=== PATIENT | female | born 1980 | race American Indian/Alaskan Native ===

== ENCOUNTER 2016-11-06 18:52 | Emergency (ER) | payer SELFPAY ==
--- NOTE | 2016-11-06 21:53 | XRay Report ---
FINAL REPORT PROCEDURE: XR ANKLE 3 RT TECHNIQUE: RIGHT ankle radiographs, AP, lateral, and oblique views. CPT 62029 HISTORY: ankle pain, back of leg pain COMPARISON: No prior studies are available for comparison. FINDINGS: Fracture (s) and/or Dislocation(s): None. Alignment: Normal. Joint space(s): No widening of the ankle mortise. Spurring of the medial malleolus. Soft tissues: Normal. Bone mineralization: Normal. Foreign bodies: None. Calcaneal spurring: Plantar and dorsal spurs. IMPRESSION: No fracture. Heel spurs..
--- NOTE | 2016-11-06 22:53 | Emergency Department Report ---
ED Lower Extremity HPI - General Chief Complaint: Extremity Injury, Lower Stated Complaint: RT ANKLE INJURY Time Seen by Provider: 11/06/16 21:14 Source: patient Mode of arrival: Ambulatory Limitations: No Limitations - History of Present Illness Initial Comments: This is a 36-year-old female that presents with right ankle pain status post inversion from a trip. Patient describes pain 8 out of 10 as aching. Timing recurrence was yesterday around 10 PM. Patient denies any numbness or tingling sensation extremities. Denies nausea or vomiting. Denies shortness of breath or chest pain. Patient has a steady gait. Patient denies any swelling to the area. Patient denies any trauma to the extremity. Patient denies any drug allergies. The patient does not seem toxic or ill appearance. No signs and distress noted. A male family members currently present at the bedside. MD Complaint: ankle injury (right) -: Sudden, days(s) (1) Injury: Ankle: Right Type of Injury: inversion (right ankle) Place: work Severity: moderate Severity scale (0 -10): 8 Improves With: NSAID Worsens With: weight bearing Context: other (tripped) Associated Symptoms: able to partially bear weight, ambulatory. denies: snap/ pop sensation, swelling, numbness, tingling, unable to bear weight - Related Data Previous Rx's Medication Instructions Recorded Last Taken Type Ibuprofen [Motrin 600 MG tab] 600 mg PO Q8H PRN 5 Days 11/06/16 Unknown Rx Allergies Allergy/AdvReac Type Severity Reaction Status Date / Time No Known Allergies Allergy Verified 11/06/16 19:37 ED Review of Systems ROS: Stated complaint: RT ANKLE INJURY Other details as noted in HPI Constitutional: denies: chills, fever Eyes: denies: eye pain, eye discharge, vision change ENT: denies: ear pain, throat pain Respiratory: denies: cough, shortness of breath, wheezing Cardiovascular: denies: chest pain, palpitations Endocrine: no symptoms reported Gastrointestinal: denies: abdominal pain, nausea, diarrhea Genitourinary: denies: urgency, dysuria, discharge Musculoskeletal: denies: back pain, joint swelling, arthralgia Skin: denies: rash, lesions Neurological: denies: headache, weakness, paresthesias Psychiatric: denies: anxiety, depression Hematological/Lymphatic: denies: easy bleeding, easy bruising ED Past Medical Hx - Past Medical History Previous Medical History?: No - Surgical History Past Surgical History?: Yes Additional Surgical History: COLON - Social History Smoking Status: Current Every Day Smoker Substance Use Type: None - Medications Home Medications: Home Medications Medication Instructions Recorded Confirmed Last Taken Type Ibuprofen [Motrin 600 MG tab] 600 mg PO Q8H PRN 5 Days 11/06/16 Unknown Rx ED Physical Exam - General Limitations: No Limitations General appearance: alert, in no apparent distress - Head Head exam: Present: atraumatic, normocephalic - Eye Eye exam: Present: normal appearance - ENT ENT exam: Present: mucous membranes moist - Neck Neck exam: Present: normal inspection - Respiratory Respiratory exam: Present: normal lung sounds bilaterally. Absent: respiratory distress - Cardiovascular Cardiovascular Exam: Present: regular rate, normal rhythm. Absent: systolic murmur, diastolic murmur, rubs, gallop - GI/Abdominal GI/Abdominal exam: Present: soft, normal bowel sounds - Extremities Exam Extremities exam: Present: normal inspection - Expanded Lower Extremity Exam Right Hip exam: Present: normal inspection, full ROM. Absent: tenderness, swelling Upper Leg exam: Present: normal inspection, full ROM. Absent: tenderness, swelling Knee exam: Present: normal inspection, full ROM. Absent: tenderness, swelling Lower Leg exam: Present: normal inspection, full ROM. Absent: tenderness, swelling Ankle exam: Present: normal inspection, full ROM, tenderness. Absent: swelling , abrasion, laceration, ecchymosis, deformity, crepidus, dislocation, erythema, anterior draw sign Foot/Toe exam: Present: normal inspection, full ROM. Absent: tenderness, swelling, abrasion, laceration, ecchymosis, deformity, dislocation, erythema, amputation, puncture wound, foreign body, calcaneal tenderness, tenderness at base of 5th metatarsal, nail avulsion Neuro vascular tendon exam: Present: no vascular compromise Gait: Positive: observed and normal - Back Exam Back exam: Present: normal inspection, full ROM. Absent: tenderness, CVA tenderness (R), CVA tenderness (L) - Neurological Exam Neurological exam: Present: alert, oriented X3, CN II-XII intact, normal gait - Psychiatric Psychiatric exam: Present: normal affect, normal mood - Skin Skin exam: Present: warm, dry, intact, normal color. Absent: rash ED Course Vital Signs 11/06/16 19:37 Temperature 98.7 F Pulse Rate 79 Respiratory 20 Rate Blood Pressure 132/69 O2 Sat by Pulse 100 Oximetry ED Lower Extremity MDM - Medical Decision Making Ed course: 36-year-old female that presents with right ankle strain 1- patient received ibuprofen 600 mg by mouth. 2-x-ray results of the right ankle: No fracture. Heel spurs. 3- patient aware of x-ray results. No further questions noted by the patient. 4- I instructed patient to rest, elevate, ice the affected area. 5- I also instructed the patient to follow up with her primary care doctor/ orthopedic within 3-5 days. 6- patient is prescribed ibuprofen 600 mg for pain as needed. 7- at the time of discharge the patient does not seem toxic or ill in appearance. No signs of any distress noted. Patient agrees with discharge plan and treatment. No further questions noted by the patient. 8- Reji wrap applied to the right ankle. No sinus symptoms of numbness or tingling sensation. Patient stated that is not too tight for her. Critical care attestation.: If time is entered above; I have spent that time in minutes in the direct care of this critically ill patient, excluding procedure time. ED Disposition Clinical Impression: Right ankle strain Qualifiers: Encounter type: initial encounter Qualified Code(s): S96.911A - Strain of unspecified muscle and tendon at ankle and foot level, right foot, initial encounter Disposition: DISCHARGED TO HOME OR SELFCARE Is pt being admited?: No Does the pt Need Aspirin: No Condition: Stable Instructions: RICE Therapy (ED), Ibuprofen (By mouth) Additional Instructions: Follow-up with her primary care doctor/orthopedic in 3-5 days Take ibuprofen as prescribed as needed If symptoms worse such as numbness tingling sensation, swelling, redness, report back to emergency room. Prescriptions: Ibuprofen [Motrin 600 MG tab] 600 mg PO Q8H PRN 5 Days PRN Reason: Pain Referrals: KEVIN ALMENDAREZ MD [Primary Care Provider] - 3-5 Days SAUL BAEZ MD [Staff Physician] - 3-[address] [facility] [Outside] - 3-5 Days [facility] [Outside] - 3-5 Days Forms: Work/School Release Form(ED)
[2016-11-06] MEDS ORDERED: MOTRIN PO ONE (22:55)
[2016-11-06 23:10] VITALS: BP 117/67
== END 2016-11-06 23:11 | disposition home or self-care (01) ==
LOC: ED 18:52
DX: S96.911A Strain of unspecified muscle and tendon at ankle and foot level, right foot, initial encounter (principal); F17.200 Nicotine dependence, unspecified, uncomplicated; X58.XXXA Exposure to other specified factors, initial encounter; Y93.89 Activity, other specified; Y99.8 Other external cause status; Y92.89 Other specified places as the place of occurrence of the external cause
CPT/HCPCS: 99284

== ENCOUNTER 2017-06-01 14:39 | Emergency (ER) | payer MEDICAID ==
--- NOTE | 2017-06-01 16:04 | Emergency Department Report ---
Chief Complaint: Abdominal Pain Stated Complaint: PREG, ABDOMINAL PAIN Time Seen by Provider: 06/01/17 16:03 - HPI History of Present Illness: Patient here reports that she is having right pelvic pain and cramping also right groin pain since last night. She states that she is 16 weeks . She says she hasn't had an ultrasound yet but she is scheduled to have OB appointment somewhere around [address] [place] [address] in June. 4para 3. Denies any urinary burning frequency or urgency. Denies any fever or chills. Pain is 8 out of 10 and feels crampy. Denies any medical problem. She denies any vaginal bleeding or discharge. She is also complaining of right shoulder pain. Denies any injuries - ROS Review of Systems: All systems are negative unless stated in HPI above - Exam Vital Signs: Vital Signs 06/01/17 15:23 Temperature 98.6 F Pulse Rate 89 Respiratory 18 Rate Blood Pressure 134/60 O2 Sat by Pulse 100 Oximetry Physical Exam: Gen.: This is a 36-year-old female well-nourished well-developed in no acute distress. Abdomen: Soft, mild tenderness to palpate the pelvic area, no guarding no rebound tenderness. Normal bowel sounds Extremity : Full range of motion to all extremities. No clubbing, cyanosis or edema. No deformity noted. MSE screening note: Focused history and physical exam performed. Due to findings the following was ordered: ED Medical Decision Making - Lab Data Result diagrams: 06/01/17 15:45 - Medical Decision Making MDM: Patient screened by provider in triage area. Appropriate protocol initiated and patient to be seen in main ED by ED Disposition for MSE Condition: Stable Instructions: Abdominal Pain (ED)
[2017-06-01 16:34] LABS: Basophils % (Auto) 0.2 % (0.0-1.8); Eosinophils % (Auto) 1.9 % (0.0-4.3); Hematocrit 38.4 % (30.3-42.9); Hemoglobin 12.7 gm/dl (10.1-14.3); Mean Corpuscular HGB Conc 33 % (30-34); Mean Corpuscular Hemoglobin 31 pg (28-32); Mean Corpuscular Volume 94 fl (79-97); Platelet Count 287 K/mm3 (140-440); Red Blood Count 4.09 M/mm3 (3.65-5.03); Red Cell Distribution Width 12.4 % (13.2-15.2); White Blood Count 15.1 K/mm3 (4.5-11.0)
[2017-06-01 16:36] LABS: Alanine Aminotransferase 8 units/L (7-56); Albumin/Globulin Ratio 1.3 %; Alkaline Phosphatase 49 units/L (35-129); Anion Gap 17 mmol/L; BUN/Creatinine Ratio 10; Blood Urea Nitrogen 4 mg/dL (7-17); Calcium 8.9 mg/dL (8.4-10.2); Carbon Dioxide 25 mmol/L (22-30); Chloride 101.3 mmol/L (98-107); Glucose 85 mg/dL (65-100); Lipase 17 units/L (13-60); Potassium 4.6 mmol/L (3.6-5.0); Sodium 139 mmol/L (137-145); Total Protein 7.1 g/dL (6.3-8.2)
[2017-06-01 16:39] LABS: Bilirubin,Urine NEG (Negative); Blood,Urine NEG (Negative); Ketones,Urine NEG (Negative); Leukocyte Esterase,Urine NEG (Negative); Mucus,Urine 1+ /HPF; Nitrite,Urine NEG (Negative); Protein,Urine <15 mg/dL mg/dL (Negative)
--- NOTE | 2017-06-01 23:22 | Ultrasound Report ---
FINAL REPORT PROCEDURE: US OB < = 14 WEEKS FETUS TECHNIQUE: Real-time transabdominal sonography of the uterus, placenta, amniotic fluid, adnexa, and fetus was performed with image documentation. Measurements were obtained to determine age/size. M-mode Doppler was used to document heartbeat. CPT 88159 HISTORY: PELVIC PAIN WITH PREGNANY COMPARISON: No prior studies are available for comparison. FINDINGS: CRL: 54 mm, which corresponds to a gestational age of: 12 weeks, 0 days. Yolk Sac: Not visualized Embryonic Cardiac Activity: Normal. 170 beats per minute. Gestational Sac: Normal. Amniotic fluid: Normal. Cervix: Normal. Right Ovary: Normal. Left Ovary: Normal. Estimated delivery date: December 14, 2017 Uterus and adnexa: Normal. IMPRESSION: Single live intrauterine gestation at approximately 12 weeks 0 days. EDC by US December 14, 2017
--- NOTE | 2017-06-02 00:08 | Ultrasound Report ---
FINAL REPORT EXAM: US OB TRANSVAGINAL HISTORY: PELVIC PAIN WITH PREGNANY TECHNIQUE: Transvaginal imaging was obtained the pelvis along with Doppler interrogation. FINDINGS: The uterus measures 14.9 cm x 9.3 cm x 10 cm. There is an intrauterine gestational sac containing an embryo corresponding to a 12 week 1 day IUP. The heart rate is 172 BPM. Complete survey of organs was not obtained. There is no evidence of subchorionic hemorrhage. The maternal right ovary is normal in size contour and echotexture measuring 3.4 cm x 2.7 cm x 2.3 cm. The maternal left ovary measures 3.8 cm x 1.6 cm x 2.5 cm. There is a complex cyst in the left ovary measures 2.5 cm in diameter. Free fluid is not seen. IMPRESSION: Single viable IUP, 12 week 1 day. heart rate 172 BPM. 2.5 cm complex cyst in the left ovary compatible with a corpus luteum cyst..
--- NOTE | 2017-06-02 00:15 | Emergency Department Report ---
HPI - General Chief Complaint: Abdominal Pain Time Seen by Provider: 06/01/17 16:03 - HPI HPI: 36-year-old AA female presents to the emergency department with complaint of lower abdominal and/or pelvic cramping since last night while . The patient believes she is about 16 weeks . With this she is . She does not have any [facility] and is not currently on any vitamins. She had the confirmed at the health Department but has not yet had an ultrasound. She denies any vaginal discharge, vaginal bleeding, dysuria, fever, nausea or vomiting. No recent travel or sick contacts at home. She denies any other past medical history. She has not taken anything for her symptoms prior to presentation. ED Past Medical Hx - Past Medical History Previous Medical History?: No - Surgical History Additional Surgical History: COLON - Social History Smoking Status: Current Every Day Smoker Substance Use Type: None - Medications Home Medications: Home Medications Medication Instructions Recorded Confirmed Last Taken Type Ibuprofen [Motrin 600 MG tab] 600 mg PO Q8H PRN 5 Days tablet 11/06/16 Unknown Rx Vit-Fe Fumar-FA [ 1 tab PO QDAY #30 tablet 06/02/17 Unknown Rx Vitamin] ED Review of Systems ROS: Stated complaint: PREG, ABDOMINAL PAIN Other details as noted in HPI Comment: All other systems reviewed and negative Constitutional: denies: chills, fever Eyes: denies: eye pain, eye discharge, vision change ENT: denies: ear pain, throat pain Respiratory: denies: cough, shortness of breath, wheezing Cardiovascular: denies: chest pain, palpitations Gastrointestinal: denies: nausea, vomiting Genitourinary: denies: urgency, dysuria, discharge Musculoskeletal: denies: back pain, joint swelling, arthralgia Skin: denies: rash, lesions Neurological: denies: headache, weakness, paresthesias Physical Exam - Physical Exam Vital Signs: Vital Signs 06/01/17 15:23 Temperature 98.6 F Pulse Rate 89 Respiratory 18 Rate Blood Pressure 134/60 O2 Sat by Pulse 100 Oximetry Physical Exam: GENERAL: The patient is well-developed well-nourished. HENT: Normocephalic. Atraumatic. Patient has moist mucous membranes. EYES: Extraocular motions are intact. Pupils equal reactive to light bilaterally. NECK: Supple. Trachea is midline. CHEST/LUNGS: Clear to auscultation. There is no respiratory distress noted. HEART/CARDIOVASCULAR: Regular. There is no tachycardia. There is no gallop rub or murmur. ABDOMEN: Abdomen is soft. Unable to reproduce any lower abdominal or pelvic tenderness to palpation. No guarding or rebound tenderness. Obese habitus. Patient has normal bowel sounds. SKIN: Skin is warm and dry. NEURO: The patient is awake, alert, and oriented. The patient is cooperative. The patient has no focal neurologic deficits. The patient has normal speech. MUSCULOSKELETAL: There is no tenderness or deformity. There is no limitation range of motion. There is no evidence of acute injury. ED Course Vital Signs 06/01/17 15:23 Temperature 98.6 F Pulse Rate 89 Respiratory 18 Rate Blood Pressure 134/60 O2 Sat by Pulse 100 Oximetry ED Medical Decision Making - Lab Data Result diagrams: 06/01/17 15:45 06/01/17 15:37 - Radiology Data Radiology results: report reviewed PROCEDURE: US OB lt; = 14 WEEKS FETUS TECHNIQUE: Real-time transabdominal sonography of the uterus, placenta, amniotic fluid, adnexa, and fetus was performed with image documentation. Measurements were obtained to determine age/size. M-mode Doppler was used to document heartbeat. CPT 66141 HISTORY: PELVIC PAIN WITH PREGNANY COMPARISON: No prior studies are available for comparison. FINDINGS: CRL: 54 mm, which corresponds to a gestational age of: 12 weeks, 0 days. Yolk Sac: Not visualized Embryonic Cardiac Activity: Normal. 170 beats per minute. Gestational Sac: Normal. Amniotic fluid: Normal. Cervix: Normal. Right Ovary: Normal. Left Ovary: Normal. Estimated delivery date: December 14, 2017 Uterus and adnexa: Normal. IMPRESSION: Single live intrauterine gestation at approximately 12 weeks 0 days. EDC by US December 14, 2017 Transcribed By: JAMES Dictated By: SHANTI SANTANA MD Electronically Authenticated By: SHANTI SANTANA MD Signed Date/Time: 06/01/171919 - Medical Decision Making The patient presents with some lower abdominal and pelvic cramping while . Ultrasound shows a live intrauterine at 12 weeks. No vaginal bleeding, discharge dysuria. Vital signs stable throughout ED course. Labs are mostly unremarkable except for a leukocytosis of 15,000 but no source of infection seen. She appears safe for discharge home at this time. She'll be given vitamins and referrals for [facility]. - Differential Diagnosis , threatened miscarriage, spontaneous miscarriage, fibroids Critical Care Time: No Critical care attestation.: If time is entered above; I have spent that time in minutes in the direct care of this critically ill patient, excluding procedure time. ED Disposition Clinical Impression: Pelvic cramping Qualifiers: Weeks of gestation: 12 weeks Qualified Code(s): Z3A.12 - 12 weeks gestation of Disposition: - TO HOME OR SELFCARE Is pt being admited?: No Condition: Stable Instructions: (ED), Abdominal Pain (ED) Additional Instructions: Please follow up with an [facility] in the next few days if possible. Return to the emergency Department with any worsening of her symptoms, vaginal bleeding, sharp abdominal or pelvic pains, or any acute distress. I have prescribed you vitamins. He can take Tylenol every 4 hours, using weight-based dosing , as needed for discomfort. Otherwise do not take any medications that are not prescribed by a physician. Prescriptions: Vit-Fe Fumar-FA [ Vitamin] 1 tab PO QDAY #30 tablet Referrals: PRIMARY CARE, [Primary Care Provider] - 3-5 Days [facility] [Provider Group] - 3-5 Days [facility] [Provider Group] - 3-5 Days [facility] [Provider Group] - 3-5 Days Time of Disposition: 00:16
[2017-06-02 00:28] VITALS: BP 142/56
== END 2017-06-02 00:28 | disposition home or self-care (01) ==
LOC: ED 14:39
DX: O26.891 Other specified pregnancy related conditions, first trimester (principal); Z3A.12 12 weeks gestation of pregnancy; O99.331 Smoking (tobacco) complicating pregnancy, first trimester
CPT/HCPCS: 36415; 76801; 76817; 80053; 81001; 83690; 84702; 85025

== ENCOUNTER 2017-12-09 13:05 | Inpatient (IN) | payer MEDICAID ==
[2017-12-09] MEDS ORDERED: XYLOCAINE 2% INFILTRATI ONE (15:56)
[2017-12-09] MEDS ORDERED: SUBLIMAZE IV PRN (15:56)
[2017-12-09] MEDS ORDERED: CERVIDIL VG ONE (15:56)
[2017-12-09] MEDS ORDERED: STADOL IV PRN (15:56)
[2017-12-09] MEDS ORDERED: BRETHINE SUB-Q PRN (15:56)
[2017-12-09] MEDS ORDERED: MINERAL OIL PO PRN (15:56)
[2017-12-09] MEDS ORDERED: ZOFRAN IV PRN (15:56)
[2017-12-09] MEDS ORDERED: BRETHINE IVP PRN (15:56)
[2017-12-09] MEDS ORDERED: ePHEDrine SULFATE IV PRN (15:56)
[2017-12-09] MEDS ORDERED: PHENERGAN PO PRN (15:56)
[2017-12-09] MEDS ORDERED: PITOCin/NS 20 UNIT/1000ML DRIP 20 UNITS/1,000 ML BAG IV SCH (16:00)
[2017-12-09] MEDS ORDERED: PITOCin/NS 30 UNIT/500ML 30 UNITS/500 ML BAG IV SCH ×2 (16:00)
--- NOTE | 2017-12-09 16:02 | History and Physical Report ---
History of Present Illness Date of examination: 12/09/17 Date of admission: 12/09/17 13:05 Chief complaint: Induction of labor History of present illness: Pt is a 37yo BF EDC 12/14/17; EGA 39 2/7 weeks presents for induction per [facility] due to Polyhydramnios, Morbid obesity and AMA. She received care at [facility] since 17 weeks and co-managed by [facility]. records are available and GBS is Negative. Past History Past Medical History: other (Morbid Obesity) Past Surgical History: no surgical history Family/Genetic History: none Social history: no significant social history, - Obstetrical History Expected Date of Delivery: 12/14/17 Actual Gestation: 39 Week(s) 3 Day(s) : 4 Medications and Allergies Allergies Allergy/AdvReac Type Severity Reaction Status Date / Time No Known Allergies Allergy Verified 11/06/16 19:37 Home Medications Medication Instructions Recorded Confirmed Last Taken Type Vit-Fe Fumar-FA [ 1 tab PO QDAY #30 tablet 06/02/17 12/09/17 09:00 Rx Vitamin] Review of Systems All systems: negative - Vital Signs Vital signs: Vital Signs Temp Pulse Resp BP Pulse Ox 96.9 F L 102 H 20 130/75 97 12/09/17 14:14 12/09/17 14:14 12/09/17 14:14 12/09/17 14:14 12/09/17 14:14 Temp Pulse Resp BP Pulse Ox 96.9 F L 98 H 20 130/75 98 12/09/17 14:14 12/09/17 15:59 12/09/17 14:14 12/09/17 14:18 12/09/17 15:59 - Physical Exam Breasts: Positive: deferred Cardiovascular: Regular rate Lungs: Positive: Clear to auscultation Abdomen: Positive: normal appearance Genitourinary (Female): Positive: normal external genitalia Vagina: Positive: normal moisture Uterus: Positive: enlarged Extremities: Positive: normal - Obstetrical FHR: category 1 Uterine Contraction Monitor Mode: External Cervical Dilatation: 1 Cervical Effacement Percentage: 50 station: -3 Uterine Contraction Pattern: Absent Results Result Diagrams: 12/09/17 16:42 All other labs normal. Assessment and Plan - Patient Problems (1) 39 weeks gestation of Onset Date: 12/09/17 Current Visit: Yes Status: Acute Plan to address problem: A: IUP @ 39 278 weeks Polyhydramnios AMA Morbid Obesity P: Admit to L&D for cervidil/pitocin induction of labor Expectant vaginal delivery (2) Polyhydramnios affecting in third trimester Onset Date: 12/09/17 Current Visit: Yes Status: Acute (3) AMA (advanced maternal age) multigravida 35+ Onset Date: 12/09/17 Current Visit: Yes Status: Chronic Qualifiers: Trimester: third trimester Qualified Code(s): O09.523 - Supervision of elderly multigravida, third trimester (4) Morbid obesity with BMI of 45.0-49.9, adult Onset Date: 12/09/17 Current Visit: Yes Status: Chronic
[2017-12-09 17:16] LABS: Hematocrit 41.6 % (30.3-42.9); Hemoglobin 13.5 gm/dl (10.1-14.3); Mean Corpuscular HGB Conc 32 % (30-34); Mean Corpuscular Hemoglobin 30 pg (28-32); Mean Corpuscular Volume 93 fl (79-97); Platelet Count 296 K/mm3 (140-440); Red Blood Count 4.49 M/mm3 (3.65-5.03); Red Cell Distribution Width 14.3 % (13.2-15.2)
[2017-12-10] MEDS: LACTATED RINGERS 1,000 ML IV SCH ×3 (02:06→09:26)
--- NOTE | 2017-12-10 14:47 | Progress Note ---
Assessment and Plan - Patient Problems (1) 39 weeks gestation of Onset Date: 12/09/17 Current Visit: Yes Status: Acute Plan to address problem: A: IUP @ 39 3/78 weeks Polyhydramnios P: Continue with pitocin induction of labor Expectant vaginal delivery (2) Polyhydramnios affecting in third trimester Onset Date: 12/09/17 Current Visit: Yes Status: Acute (3) AMA (advanced maternal age) multigravida 35+ Onset Date: 12/09/17 Current Visit: Yes Status: Acute Qualifiers: Trimester: third trimester Qualified Code(s): O09.523 - Supervision of elderly multigravida, third trimester Subjective - Subjective Date of service: 12/10/17 Principal diagnosis: IUP @ 39 4/7 weeks; Polyhydramnios Interval history: Pt is a 37yo BF EDC 12/14/17; EGA 39 3/7 weeks presented for induction of labor per [facility] due to Polyhydramnios. She received cervidel last night and currently on Pitocin 12mu/min and dave q 2-4 mins after SROM clear fluid @ 1247. Patient reports: loss of fluid, movement normal, contractions, no new complaints, no vaginal bleeding Objective - Vital Signs Vital Signs: Vital Signs - 12hr 12/10/17 12/10/17 12/10/17 02:46 02:51 02:53 Temperature Pulse Rate 83 86 85 Respiratory Rate Blood Pressure 138/68 O2 Sat by Pulse 99 97 Oximetry 12/10/17 12/10/17 12/10/17 02:56 03:01 03:06 Temperature Pulse Rate 83 78 82 Respiratory Rate Blood Pressure O2 Sat by Pulse 99 99 97 Oximetry 12/10/17 12/10/17 12/10/17 03:11 03:16 03:21 Temperature Pulse Rate 88 93 H 83 Respiratory Rate Blood Pressure O2 Sat by Pulse 99 99 99 Oximetry 12/10/17 12/10/17 12/10/17 03:26 03:31 03:36 Temperature Pulse Rate 83 79 79 Respiratory Rate Blood Pressure O2 Sat by Pulse 97 97 98 Oximetry 12/10/17 12/10/17 12/10/17 03:41 03:46 03:51 Temperature Pulse Rate 78 81 83 Respiratory Rate Blood Pressure O2 Sat by Pulse 97 98 97 Oximetry 12/10/17 12/10/1718 03:53 03:56 04:00 Temperature 98.0 F Pulse Rate 83 80 Respiratory 20 Rate Blood Pressure 121/67 O2 Sat by Pulse 98 Oximetry 12/10/17 12/10/17 12/10/17 04:01 04:06 04:11 Temperature Pulse Rate 79 77 80 Respiratory Rate Blood Pressure O2 Sat by Pulse 98 98 97 Oximetry 12/10/17 12/10/17 12/10/17 04:16 04:21 04:26 Temperature Pulse Rate 75 81 92 H Respiratory Rate Blood Pressure O2 Sat by Pulse 100 99 100 Oximetry 12/10/17 12/10/17 12/10/17 04:27 04:31 04:35 Temperature Pulse Rate 79 78 77 Respiratory Rate Blood Pressure O2 Sat by Pulse 93 89 94 Oximetry 12/10/17 12/10/17 12/10/17 04:36 04:41 04:44 Temperature Pulse Rate 82 84 86 Respiratory Rate Blood Pressure O2 Sat by Pulse 94 97 93 Oximetry 12/10/17 12/10/17 12/10/17 04:46 04:51 04:55 Temperature Pulse Rate 80 81 80 Respiratory Rate Blood Pressure 142/67 O2 Sat by Pulse 92 91 Oximetry 12/10/17 12/10/17 12/10/17 04:56 05:01 05:06 Temperature Pulse Rate 79 79 75 Respiratory Rate Blood Pressure O2 Sat by Pulse 93 92 92 Oximetry 12/10/17 12/10/17 12/10/17 05:11 05:16 05:21 Temperature Pulse Rate 74 77 79 Respiratory Rate Blood Pressure O2 Sat by Pulse 92 91 99 Oximetry 12/10/17 12/10/17 12/10/17 05:26 05:31 05:36 Temperature Pulse Rate 74 77 77 Respiratory Rate Blood Pressure O2 Sat by Pulse 99 99 100 Oximetry 12/10/17 12/10/17 12/10/17 06:52 06:53 06:57 Temperature Pulse Rate 76 82 77 Respiratory Rate Blood Pressure 139/81 O2 Sat by Pulse 98 94 98 Oximetry 12/10/17 12/10/17 12/10/17 07:00 07:02 07:07 Temperature 98.0 F Pulse Rate 73 78 Respiratory 18 Rate Blood Pressure O2 Sat by Pulse 97 95 Oximetry 12/10/17 12/10/17 12/10/17 07:12 07:17 07:22 Temperature Pulse Rate 78 90 84 Respiratory Rate Blood Pressure O2 Sat by Pulse 97 97 97 Oximetry 12/10/17 12/10/17 12/10/17 07:27 07:32 07:37 Temperature Pulse Rate 86 85 84 Respiratory Rate Blood Pressure O2 Sat by Pulse 97 97 96 Oximetry 12/10/17 12/10/17 12/10/17 07:42 07:47 07:52 Temperature 98.6 F Pulse Rate 88 78 89 Respiratory 20 Rate Blood Pressure O2 Sat by Pulse 96 97 97 Oximetry 12/10/17 12/10/17 12/10/17 07:53 07:57 08:02 Temperature Pulse Rate 82 84 83 Respiratory Rate Blood Pressure 108/59 O2 Sat by Pulse 97 97 Oximetry 12/10/17 12/10/17 12/10/17 08:07 08:12 08:17 Temperature Pulse Rate 84 97 H 94 H Respiratory Rate Blood Pressure O2 Sat by Pulse 98 97 99 Oximetry 12/10/17 12/10/17 12/10/17 08:22 08:27 08:32 Temperature Pulse Rate 91 H 98 H 99 H Respiratory Rate Blood Pressure O2 Sat by Pulse 98 98 96 Oximetry 12/10/17 12/10/17 12/10/17 08:37 08:42 08:46 Temperature Pulse Rate 99 H 74 84 Respiratory Rate Blood Pressure O2 Sat by Pulse 95 96 94 Oximetry 12/10/17 12/10/17 12/10/17 08:47 08:51 08:52 Temperature Pulse Rate 78 78 84 Respiratory Rate Blood Pressure O2 Sat by Pulse 95 94 95 Oximetry 12/10/17 12/10/17 12/10/17 08:53 08:57 09:02 Temperature Pulse Rate 90 78 78 Respiratory Rate Blood Pressure 108/54 O2 Sat by Pulse 96 98 Oximetry 12/10/17 12/10/17 12/10/17 09:05 09:07 09:12 Temperature Pulse Rate 99 H 88 103 H Respiratory Rate Blood Pressure 148/77 O2 Sat by Pulse 95 96 Oximetry 12/10/17 12/10/17 12/10/17 09:17 09:22 09:27 Temperature Pulse Rate 82 81 93 H Respiratory Rate Blood Pressure O2 Sat by Pulse 97 95 98 Oximetry 12/10/17 12/10/17 12/10/17 09:32 09:35 10:04 Temperature Pulse Rate 83 78 78 Respiratory Rate Blood Pressure 141/80 103/58 O2 Sat by Pulse 96 Oximetry 12/10/17 12/10/17 12/10/17 10:34 11:05 11:30 Temperature 98.9 F Pulse Rate 80 84 Respiratory 20 Rate Blood Pressure 111/52 113/56 O2 Sat by Pulse Oximetry 12/10/17 12/10/17 12/10/17 11:34 12:04 12:35 Temperature Pulse Rate 88 80 80 Respiratory Rate Blood Pressure 105/53 127/61 124/58 O2 Sat by Pulse Oximetry 12/10/17 12/10/17 12/10/17 12:50 12:56 13:04 Temperature Pulse Rate 86 78 85 Respiratory Rate Blood Pressure 138/61 O2 Sat by Pulse 84 0 L Oximetry 12/10/17 12/10/17 12/10/17 13:36 14:04 14:35 Temperature Pulse Rate 79 80 84 Respiratory Rate Blood Pressure 126/58 149/72 149/72 O2 Sat by Pulse Oximetry - Exam Abdomen: Present: normal appearance, soft Uterus: Present: normal FHR: category 1 Uterine Contraction Monitor Mode: External Cervical Dilatation: 4 Cervical Effacement Percentage: 50 station: -3 Uterine Contraction Pattern: Regular Uterine Tone Measurement Phase: Contraction Uterine Contraction Intensity: Moderate Extremities: normal - Labs Labs: Abnormal Labs 12/09/17 16:42 WBC 13.8 H Laboratory Results - last 24 hr 12/09/17 12/09/17 12/09/17 16:42 16:42 16:42 WBC 13.8 H RBC 4.49 Hgb 13.5 Hct 41.6 MCV 93 MCH 30 MCHC 32 RDW 14.3 Plt Count 296 RPR Nonreactive Blood Type A POSITIVE Antibody Screen Negative
[2017-12-10] MEDS ORDERED: XYLOCAINE 2% INFILTRATI ONE (17:06)
--- NOTE | 2017-12-10 17:53 | Procedure Note ---
OB Delivery Note - Delivery Date of Delivery: 12/10/17 Surgeon: ARIAN LY Estimated blood loss: 300cc - Vaginal Delivery presentation: vertex Delivery position: OA Intrapartum events: PROM->1hr before delivery, hydramnios Delivery induction: cervidil Delivery augmentation: rupture of membranes, pitocin Delivery monitor: external FHT, internal uterine Route of delivery: Delivery placenta: spontaneous Delivery cord: 3 umbilical vessels Episiotomy: none Delivery laceration: 2nd degree (perineal) Delivery repair: vicryl Anesthesia: local Delivery comments: delivered OA and placed on Mom's chest for [id number] bonding and delayed cord clamping, cut by Dad - Infant A at 1 minute: 8 at 5 minutes: 9 Infant Gender: Female (3819gms)
[2017-12-10] MEDS ORDERED: TYLENOL PO PRN (17:56)
[2017-12-10] MEDS ORDERED: NORCO 5/325 PO PRN (17:56)
[2017-12-10] MEDS ORDERED: PHENERGAN PO PRN (17:56)
[2017-12-10] MEDS ORDERED: DULCOLAX PR PRN (17:56)
[2017-12-10] MEDS ORDERED: ZOFRAN IV PRN (17:56)
[2017-12-10] MEDS ORDERED: TUCKS PAD TP PRN (17:56)
[2017-12-10] MEDS ORDERED: PHENERGAN PR PRN (17:56)
[2017-12-10] MEDS ORDERED: BENADRYL PO PRN (17:56)
[2017-12-10] MEDS ORDERED: LANSINOH TP PRN (17:56)
[2017-12-10] MEDS ORDERED: MILK OF MAGNESIA PO PRN (17:56)
[2017-12-10] MEDS ORDERED: PITOCin/NS 20 UNIT/1000ML DRIP 20 UNITS/1,000 ML BAG IV SCH (18:00)
[2017-12-10] MEDS ORDERED: SODIUM CHLORIDE FLUSH SYRINGE 10 ML IV NR (18:00)
[2017-12-10] MEDS ORDERED: D5LR 1,000 ML IV SCH (20:00)
[2017-12-10] MEDS: FEOSOL PO SCH (22:24)
[2017-12-10] MEDS: MOTRIN PO SCH (22:24)
[2017-12-11] MEDS: MOTRIN PO SCH ×2 (05:19→12:51)
--- NOTE | 2017-12-11 08:03 | Progress Note ---
Assessment and Plan - Patient Problems (1) 39 weeks gestation of Onset Date: 12/09/17 Current Visit: Yes Status: Resolved (2) Polyhydramnios affecting in third trimester Onset Date: 12/09/17 Current Visit: Yes Status: Resolved (3) AMA (advanced maternal age) multigravida 35+ Onset Date: 12/09/17 Current Visit: Yes Status: Chronic Qualifiers: Trimester: third trimester Qualified Code(s): O09.523 - Supervision of elderly multigravida, third trimester (4) Morbid obesity with BMI of 45.0-49.9, adult Onset Date: 12/09/17 Current Visit: Yes Status: Chronic (5) (normal spontaneous vaginal delivery) Onset Date: 12/11/17 Current Visit: Yes Status: Resolved Plan to address problem: A: S/P - PPD #1 Doing well P: May go home tomorrow. Subjective - Subjective Date of service: 12/11/17 Principal diagnosis: s/p - PPD #1 Interval history: Pt is feeling well without complaints. Bleeding improved. Patient reports: appetite normal, voiding normally, pain well controlled, flatus , ambulating normally, no dizzy ambulation, no nauseated [place]: doing well, bottle feeding Objective - Vital Signs Latest vital signs: Vital Signs Temp Pulse Resp BP BP Pulse Ox 12/11/17 06:19 18 12/11/17 05:19 16 12/11/17 01:08 98.7 F 85 18 122/54 12/10/17 23:24 18 12/10/17 22:24 18 12/10/17 21:05 98.9 F 99 H 22 126/67 12/10/17 18:35 98.4 F 92 H 20 112/41 96 12/10/17 18:04 91 H 137/71 12/10/17 17:49 99.1 F 18 12/10/17 17:34 90 152/65 12/10/17 17:20 89 157/67 12/10/17 17:07 99 H 200/93 12/10/17 16:37 83 168/91 12/10/17 16:05 81 152/66 12/10/17 15:53 99.2 F 12/10/17 15:34 92 H 114/46 12/10/17 15:04 82 149/71 12/10/17 14:35 84 149/72 12/10/17 14:04 80 149/72 12/10/17 13:36 79 126/58 12/10/17 13:04 85 138/61 12/10/17 12:56 78 0 L 12/10/17 12:50 86 84 12/10/17 12:35 80 124/58 12/10/17 12:04 80 127/61 12/10/17 11:34 88 105/53 12/10/17 11:30 98.9 F 20 12/10/17 11:05 84 113/56 12/10/17 10:34 80 111/52 12/10/17 10:04 78 103/58 12/10/17 09:35 78 141/80 12/10/17 09:32 83 96 12/10/17 09:27 93 H 98 12/10/17 09:22 81 95 12/10/17 09:17 82 97 12/10/17 09:12 103 H 96 12/10/17 09:07 88 95 12/10/17 09:05 99 H 148/77 12/10/17 09:02 78 98 12/10/17 08:57 78 96 12/10/17 08:53 90 108/54 12/10/17 08:52 84 95 12/10/17 08:51 78 94 12/10/17 08:47 78 95 12/10/17 08:46 84 94 12/10/17 08:42 74 96 12/10/17 08:37 99 H 95 12/10/17 08:32 99 H 96 12/10/17 08:27 98 H 98 12/10/17 08:22 91 H 98 12/10/17 08:17 94 H 99 12/10/17 08:12 97 H 97 12/10/17 08:07 84 98 Intake and Output 12/10/17 12/11/17 12/11/17 22:59 06:59 14:59 Intake Total 80.733 720 Output Total 400 700 Balance -319.267 20 Intake: IV 80.733 PITOCin/NS 30 UNIT/500ML 80.733 30 units In 500 ml @ 1 MILLIUNITS/MIN 1 mls/hr IV TITR EDDIE Rx#:[id number] Intake, Free Water 720 Output: Urine 400 700 Void 400 700 Other: Total, Output Amount 400 300 Estimated Blood Loss 300 - Exam Breasts: Present: deferred Cardiovascular: Present: Regular rate Lungs: Present: Clear to auscultation Abdomen: Present: normal appearance Uterus: Present: normal, firm, fundal height below umbilicus Extremities: Present: normal - Labs Labs: Laboratory Tests 12/09/17 12/09/17 12/09/17 16:42 16:42 16:42 WBC 13.8 H RBC 4.49 Hgb 13.5 Hct 41.6 MCV 93 MCH 30 MCHC 32 RDW 14.3 Plt Count 296 RPR Nonreactive Blood Type A POSITIVE Antibody Screen Negative 12/11/17 07:30 WBC RBC Hgb 11.7 Hct 33.9 D MCV MCH MCHC RDW Plt Count RPR Blood Type Antibody Screen
[2017-12-11 08:15] LABS: Hematocrit 33.9 % (30.3-42.9); Hemoglobin 11.7 gm/dl (10.1-14.3)
--- NOTE | 2017-12-11 08:33 | Discharge Summary ---
Providers - Providers Date of Admission: 12/09/17 13:05 Date of discharge: 12/12/17 Attending physician: ARIAN LY Primary care physician: ARIAN LY Hospitalization Reason for admission: induction of labor, IUP at term, other (Polyhydramnios; Morbid Obesity; AMA) Delivery: Episiotomy: none Laceration: 2nd degree (perineal) Other procedures: none complications: none Discharge diagnosis: IUP at term delivered [place] baby: female Hospital course: Unremarkable. Condition at discharge: Good Disposition: DC-01 TO HOME OR SELFCARE - Discharge Diagnoses (1) 39 weeks gestation of Status: Resolved (2) Polyhydramnios affecting in third trimester Status: Resolved (3) AMA (advanced maternal age) multigravida 35+ Status: Chronic Qualifiers: Trimester: third trimester Qualified Code(s): O09.523 - Supervision of elderly multigravida, third trimester (4) Morbid obesity with BMI of 45.0-49.9, adult Status: Chronic (5) (normal spontaneous vaginal delivery) Status: Resolved Plan - Discharge Medications Prescriptions: Ferrous Sulfate [Feosol 325 MG tab] 325 mg PO BID #60 tablet Ibuprofen [Motrin 600 MG tab] 600 mg PO Q6H #30 tablet Vit-Fe Fumar-FA [ Vitamin] 1 each PO QDAY #30 tablet - Provider Discharge Summary Activity: routine, no sex for 6 weeks, no heavy lifting 4 weeks, no strenuous exercise Diet: routine Instructions: routine Additional instructions: [] Smoking cessation referral if applicable(refer to patient education folder for contact #) [] Refer to [facility]'s [facility] Booklet Call your doctor immediately for: * Fever > 100.5 * Heavy vaginal bleeding ( >1 pad per hour) * Severe persistent headache * Shortness of breath * Reddened, hot, painful area to leg or breast * Drainage or odor from incision. * Keep incision clean and dry at all times and follow doctor's instructions regarding bathing/showering - Follow up plan Follow up: ARIAN LY MD [Primary Care Provider] - 6 Weeks
[2017-12-11] MEDS ORDERED: PRENATAL VITAMIN PO SCH (10:00)
[2017-12-11] MEDS ORDERED: BOOSTRIX IM ONE (17:56)
[2017-12-11] MEDS ORDERED: M-M-R II VACCINE SUB-Q ONE (17:56)
[2017-12-11] MEDS: FEOSOL PO SCH (21:33)
[2017-12-12] MEDS: MOTRIN PO SCH ×2 (00:41→05:13)
[2017-12-12 10:39] VITALS: BP 124/52
== END 2017-12-12 12:40 | disposition home or self-care (01) | DRG 775 ==
LOC: LD 13:05 → OB 12-10 18:49
PROVIDERS: ADMIT Obstetrics & Gynecology; ATTEND Obstetrics & Gynecology
PROC: 3E0P7VZ Introduction of Hormone into Female Reproductive, Via Natural or Artificial Opening (ICD-10-PCS; 2017-12-09)
PROC: 10E0XZZ Delivery of Products of Conception, External Approach (ICD-10-PCS; principal; 2017-12-10)
PROC: 0KQM0ZZ Repair Perineum Muscle, Open Approach (ICD-10-PCS; 2017-12-10)
PROC: 3E0234Z Introduction of Serum, Toxoid and Vaccine into Muscle, Percutaneous Approach (ICD-10-PCS; 2017-12-11)
DX: O40.3XX0 Polyhydramnios, third trimester, not applicable or unspecified (principal); Z3A.39 39 weeks gestation of pregnancy; Z37.0 Single live birth; O99.214 Obesity complicating childbirth; E66.01 Morbid (severe) obesity due to excess calories; Z68.42 Body mass index [BMI] 45.0-49.9, adult; O70.1 Second degree perineal laceration during delivery; Z23 Encounter for immunization
CPT/HCPCS: 36415; 85014; 85018; 85027; 86592; 86850; 86900; 86901; J0595; J2590; J7120; J7121

== ENCOUNTER 2018-07-27 06:42 | Day surgery (SDC) | payer MEDICAID ==
[~2018-07-27 06:42] MED LIST: LACTATED RINGERS 1,000 ML IV SCH; NEURONTIN PO NR; PROVENTIL IH NR; VERSED IV NR
--- NOTE | 2018-07-27 07:39 | Short Stay Summary ---
Short Stay Documentation Date of service: 07/27/18 Narrative H&P: Pt is a 38yo BF LMP 07/21/18 presents for surgical evaluation and treatment of pelvic pain. Pelvic u/s showed right ovarian cyst 4.9 x 4.0 x 5.4cm She is now scheduled for a Laparoscopic Right ovarian cystectomy. - History Principal diagnosis: Right ovarian cyst H&P: obtained from office Past Medical History: No medical history Past Surgical History: No surgical history Social history: no significant social history, single - Allergies and Medications Current Medications: Allergies No Known Allergies Allergy (Verified 07/26/18 13:50) Home Medications Medication Instructions Recorded Confirmed Last Taken Type No Known Home Medications [No 07/26/18 07/26/18 Unknown History Reported Home Medications] Active Medications Albuterol (Proventil) 2.5 mg IH PREOP NR Stop: 07/27/18 16:59 Last Admin: 07/27/18 07:17 Dose: 2.5 mg Documented by: Celecoxib (Celebrex) 200 mg PO PREOP NR Stop: 07/27/18 16:59 Last Admin: 07/27/18 07:18 Dose: 200 mg Documented by: Gabapentin (Neurontin) 300 mg PO PREOP NR Stop: 07/27/18 16:59 Last Admin: 07/27/18 07:19 Dose: 300 mg Documented by: Lactated Ringer's (Lactated Ringers) 1,000 mls @ 100 mls/hr IV DIRECT EDDIE Last Admin: 07/27/18 07:19 Dose: 100 mls/hr Documented by: - Physical exam General appearance: no acute distress Integumentary: no rash HEENT: Atraumatic Lungs: Clear to auscultation Breasts: deferred Heart: Regular rate Gastrointestinal: normal Female Genitourinary: deferred Rectal Exam: deferred Extremities: no ischemia, No edema Neurological: Normal gait, Normal speech - Brief post op/procedure progress note Date of procedure: 07/27/18 Pre-op diagnosis: 1. Pelvic pain 2. Right ovarian cyst Post-op diagnosis: same Procedure: Laparoscopic right ovarian cystectomy Anesthesia: GETA Findings: A normal uterus with normal tubes bilaterally, normal left ovary and cystic right ovary. Surgeon: ARIAN LY Estimated blood loss: minimal Pathology: list (right ovarian cyst) Specimen disposition: to lab Condition: stable - Hospital course Hospital course: Unremarkable. - Disposition Condition at discharge: Good Disposition: DC-01 TO HOME OR SELFCARE - Discharge Diagnoses (1) Right ovarian cyst Status: Resolved Short Stay Discharge Plan Activity: no restrictions Diet: regular Wound: open to air, keep clean and dry Follow up with: ARIAN LY MD [Primary Care Provider] - 14 Days Prescriptions: HYDROcodone/APAP 5-325 [[place] 5/325] 1 each PO Q6HR PRN #20 tablet PRN Reason: Pain
--- NOTE | 2018-07-27 07:40 | Anesthesia Consultation ---
<CALI BALLARD - Last Filed: 07/27/18 07:38> Anesthesia Consult and Med Hx Date of service: 07/27/18 - Airway Anesthetic Teeth Evaluation: Good ROM Head & Neck: Adequate Mental/Hyoid Distance: Adequate Mallampati Class: Class II Intubation Access Assessment: Probably Good - Pulmonary Exam CTA: Yes - Cardiac Exam Cardiac Exam: RRR - Pre-Operative Health Status ASA Pre-Surgery Classification: ASA2, ASA3 Proposed Anesthetic Plan: General Nerve Block: TAP block - Pulmonary Hx Smoking: Yes (12 cigs a day for over 20 years ) Hx Asthma: No Hx Respiratory Symptoms: No SOB: No COPD: No - Cardiovascular System Hx Hypertension: No - Central Nervous System Hx Neuromuscular Disorder: No Hx Seizures: No Hx Psychiatric Problems: No - Endocrine Hx Renal Disease: No Hx Hypothyroidism: No Hx Hyperthyroidism: No - Hematic Hx Anemia: No Hx Sickle Cell Disease: No - Other Systems Hx Alcohol Use: Yes (Occas) Hx Cancer: No Hx Obesity: Yes (BMI>49) - Additional Comments Anesthesia Medical History Comments: No GAC, No FHAC <RANDALL KISER - Last Filed: 07/27/18 09:43> Anesthesia Consult and Med Hx - Pre-Operative Health Status ASA Pre-Surgery Classification: ASA3 Nerve Block: TAP block (Erector spinae block)
[2018-07-27 07:52] LABS: Hematocrit 38.2 % (30.3-42.9); Hemoglobin 12.7 gm/dl (10.1-14.3)
[2018-07-27] MEDS ORDERED: ANCEF/STERILE WATER 2 GM/20 ML 2 GM/20 ML SYRINGE IV NR (08:00)
[2018-07-27] MEDS ORDERED: MARCAINE 0.25% INFILTRATI ONE (08:28)
[2018-07-27] MEDS ORDERED: DECADRON ONE (08:28)
[2018-07-27] MEDS ORDERED: VERSED ONE (08:32)
[2018-07-27] MEDS ORDERED: ZEMURON IV ONE (08:50)
[2018-07-27] MEDS ORDERED: SUBLIMAZE ONE (08:50)
[2018-07-27] MEDS ORDERED: BLOXIVERZ ONE (08:50)
[2018-07-27] MEDS ORDERED: ROBINUL ONE (08:50)
[2018-07-27] MEDS ORDERED: XYLOCAINE MPF 2% ONE (08:50)
[2018-07-27] MEDS ORDERED: DIPRIVAN 10 MG/ML IV ONE (08:50)
--- NOTE | 2018-07-27 09:43 | Anesthesia Day of Surgery ---
Anesthesia Day of Surgery - Day of Surgery Patient Examined: Yes Patient H&P Reviewed: Yes Patient is NPO: Yes
[2018-07-27] MEDS ORDERED: DILAUDID IV PRN (09:44)
[2018-07-27] MEDS ORDERED: MARCAINE 0.5% INFILTRATI ONE ×3 (09:49→10:19)
[2018-07-27] MEDS ORDERED: ANCEF ONE (10:22)
--- NOTE | 2018-07-27 11:31 | Progress Note ---
Subjective Date of service: 07/27/18 (block note) Principal diagnosis: Right ovarian cyst Interval history: 38 y/o female undergoing laproscopic ovarian cystectomy under [place]. Surgeon requests block for postop pain relief. Informed consent obtained. Bilateral T8 erector spinae plane blocks performed under clean conditions after chlorhexidine prep. 30 ml 0.25% bupivacaine with 4 mg decadron administered to each side under ultrasound guidance via 21ga b bevel needle. no heme, no paresthesia, pt tolerated well. Objective - Constitutional Vitals: Vital Signs - 12hr 07/27/18 07/27/18 07/27/18 07:50 08:17 08:28 Temperature 98.5 F 98.5 F Pulse Rate 81 81 96 H Respiratory 22 22 11 L Rate Blood Pressure 129/73 129/73 122/64 O2 Sat by Pulse 99 99 96 Oximetry 07/27/18 07/27/18 07/27/18 08:33 08:43 08:48 Temperature Pulse Rate 94 H 93 H 94 H Respiratory 16 14 20 Rate Blood Pressure 121/62 118/65 120/61 O2 Sat by Pulse 94 93 94 Oximetry 07/27/18 07/27/18 08:53 08:58 Temperature Pulse Rate 96 H 95 H Respiratory 17 14 Rate Blood Pressure 114/70 108/69 O2 Sat by Pulse 96 95 Oximetry - Labs CBC & Chem 7: 07/27/18 Unknown
--- NOTE | 2018-07-27 11:39 | Operative Report ---
Operative Report Operative Report: Date of procedure: 07/27/2018 Pre-operative diagnosis: 1. Pelvic pain 2. Right ovarian cyst Post-operative diagnosis: Same Procedure: Laparoscopic right ovarian cystectomy Surgeon: Yemi Louise MD Grout Pump Operator: None Anesthesia: Gen. endotracheal intubation by Dr. Paris EBL: Less than 10 mL's Findings: A normal uterus with normal tubes bilaterally. Normal left ovary and cystic right ovary. Procedure: After the patient was correctly identified, she was prepped and draped in the usual sterile fashion and placed in the dorsolithotomy position. First the bladder was emptied using a straight catheter, then the speculum was placed in the vaginal vault and the anterior lip of the cervix was grasped with single-tooth tenaculum. The uterine manipulator was then placed and the tenaculum and speculum were removed. Attention was then turned to the abdomen where first a periumbilical incision was made using the skin knife, and the Optiview trocar was inserted under direct visualization. Visualization of the pelvic organs found the uterus to be normal with the tubes normal bilaterally, the left ovary was normal and the right ovary was cystic. A suprapubic and a right lateral incision was made through which 5 mm trochars were placed in order to aid in manipulation of the pelvic organs. The tripolar cautery was used to excise the right ovarian cyst which was sent to pathology. The Tisseel sealant was sprayed across the ovarian cystectomy site. At this point the procedure was considered complete. All instruments were removed from the abdomen, the abdomen was deflated, and the periumbilical incision was closed using 0 Vicryl suture in a figure 8 configuration on the fascia followed by 4 Monocryl suture in subcuticular fashion on the skin. Each incision was infiltrated using 0.5% Marcaine solution. The uterine manipulator was removed. The patient tolerated the procedure well and was transported to recovery in stable condition.
[2018-07-27] MEDS ORDERED: NORCO 5/325 ONE (12:11)
[2018-07-27] MEDS ORDERED: NORCO 5/325 PO PRN (12:13)
[2018-07-27 12:40] VITALS: BP 128/71
--- NOTE | 2018-07-27 13:26 | Post Anesthesia Evaluation ---
- Post Anesthesia Evaluation Patient Participated: Yes Airway Patent: Yes Stable Respiratory Function: Yes Nausea/Vomiting: No Temp > 96.8F: Yes Pain Manageable: Yes Adequeate Hydration: Yes Anesthesia Complications: No Other Comments: Adequate analgesia with bilateral erector spinae blocks as expected. No apparent complications.
== END 2018-07-27 12:58 | disposition home or self-care (01) ==
LOC: OR 06:42
PROVIDERS: ATTEND Obstetrics & Gynecology
DX: N83.01 Follicular cyst of right ovary (principal); F17.210 Nicotine dependence, cigarettes, uncomplicated; E66.9 Obesity, unspecified; Z68.42 Body mass index [BMI] 45.0-49.9, adult; Z72.89 Other problems related to lifestyle; Z98.890 Other specified postprocedural states; Z80.9 Family history of malignant neoplasm, unspecified
CPT/HCPCS: 36415; 58662; 81025; 85014; 85018; 88305; C9250; J0690; J1100; J2250; J2704; J2710; J3010; J7120; 64450

== ENCOUNTER 2019-09-23 10:36 | Emergency (ER) | payer MEDICAID, OTHER ==
[2019-09-23 10:47] VITALS: BP 134/66
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
== END 2019-09-23 12:48 | disposition left against medical advice (07) ==
LOC: ED 10:36
DX: M25.561 Pain in right knee (principal); M25.511 Pain in right shoulder
CPT/HCPCS: 99281